=== PATIENT | male | born 1945 | race Two or more races ===

== ENCOUNTER → 2019-03-05 | Outpatient (CLI) | payer OTHER | END | disposition home or self-care (01) | LOC: NUCLEAR 07:00 | DX: I25.118 Atherosclerotic heart disease of native coronary artery with other forms of angina pectoris (principal) | CPT/HCPCS: 78452; 93017; A9500 ==

== ENCOUNTER 2019-06-02 11:06 | Outpatient (CLI) | payer OTHER | END 2019-06-02 11:21 | disposition home or self-care (01) | LOC: RAD 11:06 | DX: M54.5 Low back pain (principal) ==

== ENCOUNTER 2019-06-04 08:57 | Outpatient (CLI) | payer OTHER | END 2019-06-04 09:11 | disposition home or self-care (01) | LOC: NUCLEAR 08:57 | DX: M46.27 Osteomyelitis of vertebra, lumbosacral region (principal) | CPT/HCPCS: 78315; A9503 ==

== ENCOUNTER 2020-02-20 11:03 | Inpatient (IN) | payer OTHER ==
[~2020-02-20] VITALS: Ht 162.6 cm; Wt 74.4 kg
[2020-02-20] MEDS ORDERED: TOPROL XL25 M1 (11:23)
[2020-02-20] MEDS ORDERED: LOSARTAN POTASS25 MG (11:23)
[2020-02-20] MEDS ORDERED: NEURONTIN300 MG (11:23)
[2020-02-26] MEDS ORDERED: LOSARTAN POTASS25 MG PO (13:48)
[2020-02-26] MEDS ORDERED: SPIRONOLACTONE25 MG PO (13:50)
[2020-02-26] MEDS ORDERED: INTESTINEX680 M1 PO (13:51)
[2020-02-26] MEDS ORDERED: VITAMIN B-1100 MG PO (13:54)
[2020-02-26] MEDS ORDERED: PROTONIX40 MG PO (13:56)
[2020-02-26] MEDS ORDERED: COMPLEX B-1001 EACH PO (13:56)
[2020-02-26] MEDS ORDERED: LASIX20 MG PO (13:57)
[2020-02-26] MEDS ORDERED: TOPROL XL25 M1 PO (13:59)
[2020-02-26] MEDS ORDERED: CHLORDIAZEPOXID25 MG PO (13:59)
[2020-02-26] MEDS ORDERED: CARdura 2MG TABLET PO (13:59)
== END 2020-02-26 14:24 | disposition home or self-care (01) | DRG 446 ==
LOC: ER 11:03 → SURH 22:15 → MEDI 22:15 → SURH 02-21 02:13 → MEDI 02-22 22:06
PROVIDERS: ADMIT Internal Medicine; ATTEND Internal Medicine
PROC: B24BZZZ Ultrasonography of Heart with Aorta (ICD-10-PCS; principal; 2020-02-21)
PROC: BW40ZZZ Ultrasonography of Abdomen (ICD-10-PCS; 2020-02-21)
PROC: BF37ZZZ Magnetic Resonance Imaging (MRI) of Pancreas (ICD-10-PCS; 2020-02-22)
PROC: 4A12X4Z Monitoring of Cardiac Electrical Activity, External Approach (ICD-10-PCS; 2020-02-22)
DX: K80.18 Calculus of gallbladder with other cholecystitis without obstruction (principal); I10 Essential (primary) hypertension; I25.10 Atherosclerotic heart disease of native coronary artery without angina pectoris; F10.20 Alcohol dependence, uncomplicated; Z20.828 Contact with and (suspected) exposure to other viral communicable diseases; Z95.1 Presence of aortocoronary bypass graft

== ENCOUNTER 2020-03-01 04:46 | Inpatient (IN) | payer OTHER ==
[~2020-03-01] VITALS: Ht 121.9 cm; Wt 5.0 kg
[~2020-03-01 04:46] MED LIST: CARdura 2MG TABLET PO; CHLORDIAZEPOXID25 MG PO; COMPLEX B-1001 EACH PO; INTESTINEX680 M1 PO; LASIX20 MG PO; LOSARTAN POTASS25 MG; LOSARTAN POTASS25 MG PO; NEURONTIN300 MG; PROTONIX40 MG PO; SPIRONOLACTONE25 MG PO; TOPROL XL25 M1; TOPROL XL25 M1 PO; VITAMIN B-1100 MG PO
--- NOTE | 2020-03-01 06:14 | NUR ---
SE RECIBE PTE MACULINO ALERTA Y ORIENTADO X3,ACOMPANADO DE FAMILIAR ROSALIA LLEGA EN AMBULANCIA,SE CONECTA A MONITOR CARDIACOP ANUM Y OXIMETRIA CONTINUA,SE CANALIZA Y COLOCA 2 H/L PATENTES LIBRES DE EDEMA Y ENROJECIMIENTO,SE NOTIFICA A TERAPIA RESPIRATPEIA PARA ABG Y SON REALIZADOS,PTE EVALUADO POR ,SE ZOIE MUESTRAS Y SE ENVIAN A LABORATORIO,SE COLOCA C/N A 2LTRS,SE MANTIENE A PTE EN OBSERVACION POR CA,MBIOS.
--- NOTE | 2020-03-01 08:53 | NUR ---
PTE ALERTA Y ORIENTADO POR DIDIER DIMENSIONES, CON BUEN PATRON RESPIRATORIO. SE CONECTA AL MONITOR CARDIACO PARA TRANSPORTAR A CT CON PERSONAL DE ESCORTA. SE REALIZA X-RAY SIN COMPLICACIONES. SE DEVUELVE A AREA DE CHEST PAIN. SE COLOCA NBP, MONITOR CARDIACO DEL AREA, Y OXIMETRIA.
[2020-03-02] MEDS ORDERED: DOXAZOSIN MESYLA2 MG (08:11)
[2020-03-02] MEDS ORDERED: FAMOTIDINE40 MG (08:12)
[2020-03-02] MEDS ORDERED: ROSUVASTATIN CA20 MG (08:12)
[2020-03-16] MEDS ORDERED: LOPRESSOR25 MG PO (13:17)
[2020-03-16] MEDS ORDERED: ISOSORBIDE DINI20 MG PO (13:17)
[2020-03-16] MEDS ORDERED: TAMS0.4C PO (13:17)
[2020-03-16] MEDS ORDERED: GABAPENTIN100 MG PO (13:18)
[2020-03-16] MEDS ORDERED: PROTONIX40 MG PO (13:19)
[2020-03-16] MEDS ORDERED: INTESTINEX680 M1 PO (13:19)
[2020-03-16] MEDS ORDERED: COMPLEX B-1001 EACH PO (13:19)
[2020-03-16] MEDS ORDERED: FUROSEMIDE40 MG PO (13:19)
[2020-03-16] MEDS ORDERED: FOLIC ACID1 MG PO (13:19)
[2020-03-16] MEDS ORDERED: VITAMIN B-1100 MG PO (13:19)
[2020-03-16] MEDS ORDERED: CLONAZEPAM1 MG PO (13:20)
== END 2020-03-16 13:55 | disposition home or self-care (01) | DRG 292 ==
LOC: ER 04:46 → ICU-2 09:34 → ICU 03-04 02:17 → MEDI 03-04 19:01
PROVIDERS: ADMIT Internal Medicine; ATTEND Internal Medicine
PROC: B24BZZZ Ultrasonography of Heart with Aorta (ICD-10-PCS; 2020-03-01)
PROC: 4A033R1 Measurement of Arterial Saturation, Peripheral, Percutaneous Approach (ICD-10-PCS; 2020-03-01)
PROC: CB2YYZZ Tomographic (Tomo) Nuclear Medicine Imaging of Respiratory System using Other Radionuclide (ICD-10-PCS; 2020-03-01)
PROC: BW21ZZZ Computerized Tomography (CT Scan) of Abdomen and Pelvis (ICD-10-PCS; 2020-03-01)
PROC: 4A12X4Z Monitoring of Cardiac Electrical Activity, External Approach (ICD-10-PCS; principal; 2020-03-04)
PROC: BT41ZZZ Ultrasonography of Right Kidney (ICD-10-PCS; 2020-03-06)
DX: I11.0 Hypertensive heart disease with heart failure (principal); N17.8 Other acute kidney failure; N13.39 Other hydronephrosis; R65.10 Systemic inflammatory response syndrome (SIRS) of non-infectious origin without acute organ dysfunction; K70.9 Alcoholic liver disease, unspecified; Z95.1 Presence of aortocoronary bypass graft; I25.10 Atherosclerotic heart disease of native coronary artery without angina pectoris; Z20.828 Contact with and (suspected) exposure to other viral communicable diseases; K70.31 Alcoholic cirrhosis of liver with ascites; I34.0 Nonrheumatic mitral (valve) insufficiency; I50.43 Acute on chronic combined systolic (congestive) and diastolic (congestive) heart failure; D69.6 Thrombocytopenia, unspecified

== ENCOUNTER 2020-06-14 02:54 | Emergency (ER) | payer OTHER ==
[~2020-06-14] VITALS: Ht 162.6 cm; Wt 65.8 kg
[~2020-06-14 02:54] MED LIST changes: +CLONAZEPAM1 MG PO; +DOXAZOSIN MESYLA2 MG; +FAMOTIDINE40 MG; +FOLIC ACID1 MG PO; +FUROSEMIDE40 MG PO; +GABAPENTIN100 MG PO; +ISOSORBIDE DINI20 MG PO; +LOPRESSOR25 MG PO; +ROSUVASTATIN CA20 MG; +TAMS0.4C PO
== END 2020-06-14 20:37 | disposition home or self-care (01) ==
LOC: ER 02:54 → CPU-OBS 02:55 → ER 20:37
DX: K80.18 Calculus of gallbladder with other cholecystitis without obstruction (principal); N39.0 Urinary tract infection, site not specified; B95.2 Enterococcus as the cause of diseases classified elsewhere; K76.89 Other specified diseases of liver; K74.69 Other cirrhosis of liver; R18.8 Other ascites; R10.13 Epigastric pain; I25.799 Atherosclerosis of other coronary artery bypass graft(s) with unspecified angina pectoris; I11.0 Hypertensive heart disease with heart failure; I10 Essential (primary) hypertension; Z95.1 Presence of aortocoronary bypass graft; Z03.818 Encounter for observation for suspected exposure to other biological agents ruled out

== ENCOUNTER 2020-12-20 22:50 | Emergency (ER) | payer OTHER ==
[~2020-12-20] VITALS: Ht 162.6 cm; Wt 65.8 kg
[2020-12-20] MEDS ORDERED: RESTORIL15 MG (23:16)
[2020-12-20] MEDS ORDERED: ALDACTONE25 MG (23:17)
[2020-12-21] MEDS ORDERED: MUPIROCIN22 GM TOP (02:39)
[2020-12-21] MEDS ORDERED: CIPRO500 MG PO (02:39)
== END 2020-12-21 02:45 | disposition home or self-care (01) ==
LOC: ER 22:50
DX: S00.03XA Contusion of scalp, initial encounter (principal); S40.012A Contusion of left shoulder, initial encounter; W18.39XA Other fall on same level, initial encounter; Y93.89 Activity, other specified; Y92.098 Other place in other non-institutional residence as the place of occurrence of the external cause; Y99.8 Other external cause status

== ENCOUNTER 2021-02-02 10:50 | Outpatient (CLI) | payer OTHER ==
[~2021-02-02 10:50] MED LIST changes: +ALDACTONE25 MG; +CIPRO500 MG PO; +MUPIROCIN22 GM TOP; +RESTORIL15 MG
== END 2021-02-02 11:10 | disposition home or self-care (01) ==
LOC: TOM 10:50
DX: R10.2 Pelvic and perineal pain (principal); K76.89 Other specified diseases of liver
CPT/HCPCS: 74177; Q9965

== ENCOUNTER 2021-02-16 13:37 | Outpatient (CLI) | payer OTHER | END 2021-02-16 13:40 | disposition home or self-care (01) | LOC: NUCLEAR 13:37 | PROVIDERS: ATTEND Internal Medicine Cardiovascular Disease | DX: I25.5 Ischemic cardiomyopathy (principal) | CPT/HCPCS: 78472; 78496; A9560 ==